=== PATIENT | female | born 1950 | race Hispanic/Latino ===

== ENCOUNTER 2016-11-01 19:54 | Emergency (ER) | payer SELFPAY ==
[2016-11-01 19:57] VITALS: BP 109/57; PULSE 60; RESP 18; TEMP 98.1; O2SAT 96
--- NOTE | 2016-11-01 20:11 | ED PDOC ---
Upper Extremity Pain/Injury Time Seen by Provider: 11/01/16 20:00 Chief Complaint (Nursing): Upper Extremity Problem/Injury Chief Complaint (Provider): Left Wrist Pain History Per: Patient History/Exam Limitations: no limitations Onset/Duration Of Symptoms: Hrs (x1) Current Symptoms Are (Timing): Still Present Severity: Mild Additional Complaint(s): Patient is a 66 year old female presenting to the ED complaining of left wrist pain status post fall x1 hour ago. Patient slipped on ice and fell onto her left wrist. Patient feels lightheaded due to the pain. PMD: none Past Medical History Reviewed: Historical Data, Nursing Documentation, Vital Signs Vital Signs: Last Vital Signs Temp 98.1 F 11/01/16 19:55 Pulse 60 11/01/16 19:55 Resp 18 11/01/16 19:55 BP 109/57 L 11/01/16 19:55 Pulse Ox 96 11/01/16 19:55 - Medical History PMH: No Chronic Diseases - Family History Family History: States: No Known Family Hx - Home Medications Home Medications: Ambulatory Orders Medication Instructions Recorded traMADol [Ultram] 50 mg PO Q6H PRN #15 tab 11/01/16 - Allergies Allergies/Adverse Reactions: Allergies Allergy/AdvReac Type Severity Reaction Status Date / Time No Known Allergies Allergy Verified 11/01/16 19:58 Review of Systems ROS Statement: Except As Marked, All Systems Reviewed And Found Negative Constitutional: Negative for: Fever Musculoskeletal: Positive for: Other (left wrist pain) Physical Exam - Reviewed Nursing Documentation Reviewed: Yes Vital Signs Reviewed: Yes - Physical Exam Appears: Positive for: Well, Non-toxic, No Acute Distress Head Exam: Positive for: ATRAUMATIC, NORMAL INSPECTION, NORMOCEPHALIC Skin: Positive for: Normal Color, Warm, DRY Eye Exam: Positive for: Normal appearance Neck: Positive for: Normal Pulses-Radial (L): 2+ Pulses-Radial (R): 2+ Extremity: Positive for: Tenderness (distal left radius and ulna), Capillary Refill, Deformity (left distal radius and ulna), Swelling (Mikd ). Negative for : Normal ROM (limited) Neurologic/Psych: Positive for: Alert, Oriented - ECG O2 Sat by Pulse Oximetry: 96 Medical Decision Making Medical Decision Making: Time: 20:05 Impression: left wrist injury Plan: XR left wrist Toradol 30 mg IV accucheck 175 XR shows displaced fx of the distal radius and ulna styloid Fx. Discussed with Dr. Dean. Pt seen and examined by Dr. Benitez PT placed in finger traps with gravity as traction for 15 minutes. Improvement of deformity . Repeat x-ray: Improvement of displacement. Scribe Attestation: Documented by Brandi Romero acting as a scribe for Danette Godfrey. Provider Attestation: All medical record entries made by the Scribe were at my direction and personally dictated by me. I have reviewed the chart and agree that the record accurately reflects my personal performance of the history, physical exam, medical decision making, and the department course for this patient. I have also personally directed, reviewed, and agree with the discharge instructions and disposition. Disposition - Clinical Impression Clinical Impression: Fracture of wrist - Patient ED Disposition Is Patient to be Admitted: No Counseled Patient/Family Regarding: Diagnosis, Need For Followup, Rx Given - Disposition Referrals: Chris Dean MD [Staff Provider] - Disposition: Routine/Home Disposition Time: 22:14 Condition: GOOD Additional Instructions: Ice, elevation, tramadol for severe pain. Prescriptions: traMADol [Ultram] 50 mg PO Q6H PRN #15 tab PRN Reason: Pain Instructions: Wrist Fracture in Adults (ED)
--- NOTE | 2016-11-02 11:54 | RAD ---
PROCEDURE: Left Wrist Radiographs. HISTORY: wrist pain, FOOSH, deformity COMPARISON: None. FINDINGS: BONES: There is diffuse bone demineralization. There is an acute transverse impacted fracture in the distal radius with volar angulation. There is also an acute transverse nondisplaced fracture in the styloid process of the ulna. JOINTS: Bone alignment is normal. The proximal and distal carpal rows are preserved. SOFT TISSUES: There is mild periarticular soft tissue swelling. OTHER FINDINGS: None. IMPRESSION: Acute transverse impacted fracture in the distal radius with volar angulation. Acute transverse nondisplaced fracture in the styloid process of ulna.
--- NOTE | 2016-11-02 12:06 | RAD ---
PROCEDURE: Left Wrist Radiographs. HISTORY: repeat COMPARISON: Plain radiographs performed earlier the same day FINDINGS: BONES: Crust obscures fine bony details. Status post close reduction. There is redemonstration of acute transverse impacted fracture in the distal radius with volar angulation. Also noted is a nondisplaced fracture in the styloid process of ulna. JOINTS: Bone alignment is normal. SOFT TISSUES: Periarticular soft tissue swelling. OTHER FINDINGS: None. IMPRESSION: Status post close reduction of acute transverse impacted fracture in the distal radius. Interval improvement in volar angulation and improved alignment of fracture fragments. Redemonstration of acute transverse nondisplaced fracture in styloid process of ulna.
== END 2016-11-01 23:07 | disposition home or self-care (01) ==
LOC: H.ER 19:54
DX: S52.502A Unspecified fracture of the lower end of left radius, initial encounter for closed fracture (principal); W19.XXXA Unspecified fall, initial encounter; Y92.89 Other specified places as the place of occurrence of the external cause
CPT/HCPCS: 29125; 73100; 82948; 99282; J1885